=== PATIENT | male | born 1970 | race Caucasian/White ===

== ENCOUNTER → 2023-10-30 14:09 | Outpatient (REF) | payer OTHER, SELFPAY | LOC: RAD 14:09 | PROVIDERS: ATTENDING PHYSICIAN Surgery Vascular Surgery | DX: I73.9 Peripheral vascular disease, unspecified (principal) | CPT/HCPCS: 93922; 93925 ==

== ENCOUNTER → 2024-05-22 14:54 | Outpatient (REF) | payer OTHER, SELFPAY | LOC: DHVS 14:54 | PROVIDERS: ATTENDING PHYSICIAN Registered Nurse | DX: I73.9 Peripheral vascular disease, unspecified (principal) | CPT/HCPCS: 93922; 93925 ==

== ENCOUNTER → 2024-12-05 14:54 | Outpatient (REF) | payer OTHER, SELFPAY | LOC: RAD 14:54 | PROVIDERS: ATTENDING PHYSICIAN Surgery Vascular Surgery; FAMILY PHYSICIAN Nurse Practitioner Gerontology | DX: I73.9 Peripheral vascular disease, unspecified (principal) | CPT/HCPCS: 93922; 93925 ==

== ENCOUNTER 2024-12-27 06:45 | Day surgery (SDC) | payer OTHER, SELFPAY ==
[2024-12-13 09:17] VITALS: BMI 25.8
[2024-12-13 10:00] LABS: Hematocrit 46.8 % (39.0-52.0); Hemoglobin 16.3 g/dL (13.0-18.0); Mean Corp Hgb Conc. 34.8 g/dL (33.0-37.0); Mean Corpuscular Volume 96.9 fL (80.0-94.0); Nucleated Red Blood Cells % 0 % (-); Platelet Count 208 10^3/uL (130-400); Red Cell Dist. Width 12.0 % (11.5-14.5)
[2024-12-13 10:09] LABS: INR 0.89; PT 12.4 Sec (11.4-14.6)
[2024-12-13 10:10] LABS: APTT 27.4 Sec (23.4-35.0)
[2024-12-13 10:27] LABS: Blood Urea Nitrogen 10 mg/dl (9-20); Calcium 9.2 mg/dl (8.4-10.2); Carbon Dioxide 25 mmol/L (22-30); Chloride 105 mmol/L (98-107); Estimated Creatinine Clearance 113 ml/min; Glucose 113 mg/dl (70-99); Potassium 4.0 mmol/L (3.5-5.1); Sodium 140 mmol/L (135-145); eGFR > 60.00
[2024-12-27] VITALS (28 sets, daily range): BP systolic 85–154; BP diastolic 11–111
--- NOTE | 2024-12-27 08:32 | W.SUR.PREOP ---
Pre-Operative Surgical Note
-
I have examined this patient prior to the performance of the scheduled procedure.
The patient's condition is unchanged from the time of the current History and
Physical and the patient is able to undergo the scheduled procedure.
--- NOTE | 2024-12-27 10:16 | W.SUR.POST ---
Surgical Immediate Post Op
Note
Pre Op Diagnosis: PAD
Post Op Diagnosis: PAD
Procedure Performed: Bilateral lower extremity angiogram and angioplasty/stent of RIGHT SFA
Primary Surgeon: Yariel Graham MD
Secondary Surgeons: Wilber Vidal MD PhD
Anesthesia: MAC - per anesthesia
Estimated Blood Loss: 2 cc
Fluids: Per anesthesia
Drains/Shunts: None
Specimens/Cultures: None
Doppler/Duplex/Angio (Y/N): Yes - Angio
Complications: None
Operative Findings: Left groin access followed by identification of proximal RIGHT SFA occlusion. Recannulation of SFA and balloon angioplasty. Stent placement x3 through recannulated SFA (Cook Zilver PTX 6x140 mm x2 and 6x60 x1). Balloon
angioplasty through stent and completion angio.
[2024-12-27] MEDS: PLAVIX 300 MG PO (11:07)
[2024-12-27] MEDS: NSS 1000 IV (12:10)
[2024-12-27] MEDS: LOW STRENGTH ASPIRIN 81 MG PO (13:00)
--- NOTE | 2024-12-27 16:29 | OR.RPT ---
Operative Report
Operative Report
Date of Operation: 12/27/2024
Pre Op Diagnosis: Debilitating lower extremity claudication
Post Op Diagnosis: Debilitating lower extremity claudication
Procedure:
1. Balloon angioplasty and drug-eluting stent placement to right superficial femoral artery (overlapping 6 mm x 140 mm Zilver PTX x2; 6 mm x 60 mm Zilver PTX)
2. Intravascular ultrasound to right common femoral artery and superficial femoral artery
3. Diagnostic aortobiiliac arteriogram
4. Diagnostic BILATERAL lower extremity arteriograms
5. Ultrasound-guided percutaneous access to the left common femoral artery
Surgeon: Yariel Graham III, MD
Psychometrician: Wilber Vidal MD PhD PGY-7
Anesthesia: Sedation with local
Fluoroscopy:
31.4 min
21 mGy
48.43 gy.cm2
Complications: None
Estimated Blood Loss: Less than 20 cc
History and Indications for Procedure: 54-year-old male with debilitating lower extremity claudication.
Procedure in Detail: René Harrell was correctly identified and placed supine on the operating table. After adequate induction of anesthesia the bilateral groins were prepped and draped in the usual sterile fashion. A timeout was performed with
the nursing and anesthesia staff confirming the patient's identity as well as the nature and laterality of the procedure.
The left common femoral artery was identified under ultrasound guidance. The artery was patent. The superior and inferior aspects of the femoral head were identified with radiographic guidance and marked at the skin level. The proposed puncture site
was infiltrated with local anesthesia. Under ultrasound guidance we accessed the left common femoral artery with a micropuncture needle and upsized to a 5 Fr sheath over a Root Oranges[employer] wire. The wire and a [employer] hook flush catheter were advanced into
the distal abdominal aorta and a diagnostic aorto-biiliac arteriogram was performed:
AORTO-ILIAC ARTERIOGRAM:
Aorta: Patent with no stenosis identified
Right common iliac artery: Patent with no stenosis identified
Right external iliac artery: Patent with no stenosis identified
Left common iliac artery: Patent with no stenosis identified
Left external iliac artery: Patent with no stenosis identified
Under roadmap guidance using a Glidewire and the [employer] hook catheter we selected the right common iliac artery followed by the external iliac artery and then the common femoral artery. A catheter was tracked up and over the aortic bifurcation
and placed in the common femoral artery. A diagnostic right lower extremity arteriogram was then performed which demonstrated the following:
RIGHT LOWER EXTREMITY:
Common femoral artery: Patent with no stenosis identified
Profunda femoral artery: Widely patent with no stenosis identified. Robust collateral branch network
Superficial femoral artery: Patent proximally with small diameter. Occluded thereafter.
Popliteal artery: Reconstituted above the knee. Patent behind the knee and below the knee
Anterior tibial artery: Patent but sluggish flow relative to the posterior tibial artery. 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
Tibioperoneal trunk: Patent
Peroneal artery: Patent
Posterior tibial artery: Patent. Dominant tibial artery runoff. No stenosis identified
ENDOVASCULAR INTERVENTION: Systemic heparin was administered. Exchanged out for a 6 Fr 45 cm sheath over a [employer] wire. Selected the superficial femoral artery under roadmap guidance. The occlusion was crossed with a 0.014 Mongo wire and 0.014 SPEX
catheter. The wire and catheter were advanced into the popliteal artery and subtraction angio confirmed proper position in the true lumen. Proceeded with intravascular ultrasound. The 0.014 IVUS catheter was brought through the sheath and into the
right common femoral artery. Diameter measurements were made (9.4 mm x 9.2 mm). The catheter was then advanced into the proximal superficial femoral artery, proximal to the occlusion which measured 5.2 mm x 5.2 mm. I attempted to pass the
catheter through the occluded superficial femoral artery segment but could not advance this beyond the mid SFA. I then removed the IVUS catheter over the wire. I then predilated the entire occluded SFA segment with a 4 mm angioplasty balloon.
Following this we proceeded with stent placement. Overlapping Zilver PTX stents were used starting in the above-knee popliteal artery. Two 6 mm x 140 mm Zilver PTX's were positioned in the desired location 1 at a time and deployed. I then
extended proximally to the SFA origin with a 6 mm x 60 mm Zilver PTX. The stents were individually deployed in the desired location. The stents were then postdilated with a 6 mm angioplasty balloon.
COMPLETION ARTERIOGRAM: Widely patent right superficial femoral artery stents with no significant residual stenosis identified. Brisk flow through the superficial femoral artery and popliteal artery. Brisk tibial runoff through the posterior
tibial artery which was the dominant vessel. Patent anterior tibial artery and peroneal artery with flow that lagged behind the posterior tibial.
Satisfied with this result we concluded the procedure. The sheath tip was pulled back into the left external iliac artery. A runoff arteriogram of the left lower extremity was performed which demonstrated the following:
LEFT LOWER EXTREMITY:
Common femoral artery: Patent with no stenosis identified
Profunda femoral artery: Patent with no stenosis identified
Superficial femoral artery: Patent with no stenosis identified
Popliteal artery: Patent. Focal calcified stenosis behind the knee.
Anterior tibial artery, posterior tibial artery and peroneal artery patent to the mid calf
The patient tolerated the procedure well and was taken to the recovery area in stable condition.
Attestation: I was present and responsible for the entire procedure.
Signed:
Yariel Graham III, MD
Vascular Surgery
[facility]
== END 2024-12-27 15:52 | disposition home or self-care (01) ==
LOC: CATH 06:45
PROVIDERS: ATTENDING PHYSICIAN Surgery Vascular Surgery; PRIMARYCARE PHYSICIAN Nurse Practitioner Gerontology
DX: I70.211 Atherosclerosis of native arteries of extremities with intermittent claudication, right leg (principal); Z79.82 Long term (current) use of aspirin; F17.210 Nicotine dependence, cigarettes, uncomplicated
CPT/HCPCS: 37226; 37252; 36415; 75625; 75710; 80048; 85025; 85610; 85730; 93005; C1725; C1769; C1874; C1894; Q9967

== ENCOUNTER → 2025-01-23 13:05 | Outpatient (REF) | payer OTHER, SELFPAY | LOC: RAD 13:05 | PROVIDERS: ATTENDING PHYSICIAN Surgery Vascular Surgery; FAMILY PHYSICIAN Nurse Practitioner Gerontology | DX: I73.9 Peripheral vascular disease, unspecified (principal) | CPT/HCPCS: 93922; 93925 ==